=== PATIENT | male | born 1990 | race Caucasian/White ===

== ENCOUNTER 2018-08-22 14:04 | Emergency (ER) | payer MEDICAID ==
[~2018-08-22] VITALS: Ht 172.7 cm; Wt 59.9 kg
[2018-08-22 14:07] VITALS: BP 135/79
--- NOTE | 2018-08-22 14:15 | NUR ---
WHEELCHAIR ASSISTED TO BED 6 AT THIS TIME.
--- NOTE | 2018-08-22 15:14 | NUR ---
27 yo m bib family w/ c/o dizziness, chest pain, n/v, abd pain, and feeling feverish x 3 or 4 days. pt reports that he also has a cough x today. pt vss, hr 89, o2 sat 99%, BP 135/79, R18. pt reports that his chest hurts on the left side and it feels like his heart is racing. pt aaox4, gcs 15, cms intact. rr even and unlabored, lungs bl clear. denies smoking/drinking. hx denies rx denies
[2018-08-22 15:37] LABS: BASOPHILS % (AUTO) 0.3 % (0.0-2.0); EOSINOPHILS # (AUTO) 0.1 K/uL (0-0.4); EOSINOPHILS % (AUTO) 1.1 % (0.0-4.0); LYMPHOCYTES # (AUTO) 1.2 K/uL (2.0-11.5); LYMPHOCYTES % (AUTO) 23.7 % (20.5-51.1); MEAN CORPUSCULAR HEMOGLOBIN 29 pg (27-31); MEAN CORPUSCULAR HGB CONC 33 g/dL (33-37); MEAN CORPUSCULAR VOLUME 88.6 fL (80-94); MONOCYTES # (AUTO) 0.3 K/uL (0.8-1.0); NEUTROPHILS # (AUTO) 3.4 K/uL (1.8-7.7); NEUTROPHILS % (AUTO) 67.9 % (42.2-75.2); PLATELET COUNT (AUTO) 155 K/uL (140-450); RED CELL DISTRIBUTION WIDTH 13.2 % (11.6-13.7)
[2018-08-22 15:52] LABS: APPEARANCE,URINE CLEAR (CLEAR); BILIRUBIN,URINE NEGATIVE (NEGATIVE); BLOOD, URINE NEGATIVE (NEGATIVE); COLOR,URINE YELLOW (YELLOW); LEUKOCYTE ESTERASE ,URINE NEGATIVE (NEGATIVE); NITRITE, URINE NEGATIVE (NEGATIVE); UGLUCOSE NEGATIVE (NEGATIVE)
[2018-08-22 15:53] LABS: PROTHROMBIN TIME 10.4 secs (10.8-13.4)
[2018-08-22 15:53] LABS: BARBITURATE, URINE NEG. ng/ml (NEG <=200); BENZODIAZEPINE, URINE NEG. ng/mL (NEG <=200); CANNABINOID, URINE NEG. ng/mL (NEG <=50); COCAINE, URINE NEG. ng/mL (NEG <=300); OPIATE, URINE NEG. ng/mL (NEG <=2000); PHENCYCLIDINE SCREEN,URINE NEG. ng/mL (NEG <=25)
[2018-08-22 15:58] LABS: ALBUMIN 4.4 g/dL (3.4-5.0); ANION GAP 6.7 (8-16); ASPARTATE AMINOTRANSFERASE 16 U/L (15-37); CARBON DIOXIDE 32.1 mmol/L (21-32); CHLORIDE 106 mmol/L (98-107); GFR ARICAN-AMERICAN 117 mL/min (>90); GLUCOSE 108 mg/dL (74-106); POTASSIUM 3.8 mmol/L (3.5-5.1); SODIUM SERUM 141 mmol/L (136-145); TOTAL BILIRUBIN 0.5 mg/dL (0.0-1.0); UREA NITROGEN, BLOOD 11 mg/dL (7-18)
[2018-08-22 16:04] LABS: SALICYLATE < 2.8 mg/dL (2.8-20.0)
[2018-08-22 16:05] LABS: ACETAMINOPHEN < 0.5 ug/ml (10-30)
[2018-08-22 17:36] VITALS: BP 120/85
--- NOTE | 2018-08-22 17:36 | NUR ---
Patient discharged with v/s stable. Written and verbal after care instructions given and explained. Patient alert, oriented and verbalized understanding of instructions. Ambulatory with steady gait. All questions addressed prior to discharge. ID band removed. Patient advised to follow up with PMD. Rx of ANTIVERT AND MOTRIN given. Patient educated on indication of medication including possible reaction and side effects. Opportunity to ask questions provided and answered.
== END 2018-08-22 17:36 | disposition home or self-care (01) ==
LOC: MED 14:04
DX: B34.9 Viral infection, unspecified (principal)
CPT/HCPCS: 36415; 71045; 80053; 80305; 81003; 82550; 83605; 84484; 85025; 85610; 85730; 93005; 99285; G0480; G0482